=== PATIENT | female | born 1995 | race Two or more races ===

== ENCOUNTER 2017-06-25 12:05 | Observation (INO) | payer SELFPAY ==
[~2017-06-25] VITALS: Ht 160 cm; Wt 63.5 kg
[2017-06-25] MEDS ORDERED: MICONAZOLE NITRATE 2 % VAGINAL CREAM 45 GM PV ONE (13:30)
[2017-06-25 13:48] LABS: Urine Bilirubin Negative (Negative); Urine Blood Negative /uL (Negative); Urine Color Yellow (Yellow); Urine Glucose Normal (Normal); Urine Ketone 1+ (Negative); Urine Mucus FEW (None Seen); Urine Nitrite Negative (Negative); Urine RBC 4 /hpf (0 - 4); Urine Squamous Epithelial Cell MOD /hpf (<5); Urine pH 6.5 (5.0-8.0)
== END 2017-06-25 14:40 | disposition home or self-care (01) | DRG 782 ==
LOC: LDRP 12:05
PROVIDERS: ADMIT Specialist; ATTEND Specialist
DX: O62.9 Abnormality of forces of labor, unspecified (principal); Z3A.35 35 weeks gestation of pregnancy
CPT/HCPCS: 59025; 76805; 80307; 81001; 81002; G0378